=== PATIENT | female | born 1945 | race Caucasian/White ===

== ENCOUNTER 2024-06-13 23:20 | Emergency (ER) | payer MEDICARE, OTHER, SELFPAY ==
[2024-06-13 23:22] VITALS: BP 140/83
[2024-06-14 01:12] LABS: % Basophils 0.7 % (0-2); % Eosinophils 1.6 % (0-6); % Immature Granulocytes 0.4 % (0-0.5); % Lymphocytes 21.3 % (20.5-51.1); % Monocytes 9.4 % (1.7-9.3); % Neutrophils 66.6 % (42.2-75.2); Absolute Basophils 0.1 10^3/uL (0-0.2); Absolute Eosinophils 0.1 10^3/uL (0-0.7); Absolute Lymphocytes 1.6 10^3/uL (1.2-3.4); Absolute Monocytes 0.7 10^3/uL (0.1-0.6); Hematocrit 38.8 % (37.0-47.0); Hemoglobin 13.2 g/dL (12.0-16.0); Mean Corpuscular Hgb 30.9 pg (27.0-31.0); Mean Corpuscular Volume 90.9 fL (81.0-99.0); Mean Platelet Volume 9.7 fL (7.4-10.4); Nucleated Red Blood Cells % 0 %; Platelet Count 193 10^3/uL (130-400); Red Blood Cell Count 4.27 10^6/uL (4.20-5.40); Red Cell Dist. Width 13.7 % (11.5-14.5); White Blood Cell Count 7.5 10^3/uL (4.8-10.8)
[2024-06-14 01:26] LABS: ALT (SGPT) 23 U/L (0-35); AST (SGOT) 26 U/L (14-36); Albumin 4.1 g/dl (3.5-5.0); Alkaline Phosphatase 66 U/L (38-126); Blood Urea Nitrogen 35 mg/dl (7-17); Calcium 9.9 mg/dl (8.4-10.2); Carbon Dioxide 27 mmol/L (22-30); Chloride 105 mmol/L (98-107); Glucose 102 mg/dl (70-99); Potassium 4.4 mmol/L (3.5-5.1); Sodium 138 mmol/L (135-145); Total Bilirubin 0.5 mg/dl (0.2-1.3); Total Protein 6.9 g/dl (6.3-8.2); eGFR > 60.00
[2024-06-14 02:12] VITALS: BP 136/80
--- NOTE | 2024-06-14 02:15 | ED.GENMED ---
History of Present Illness
General
Chief Complaint: Vaginal Bleeding
Source: patient
Exam Limitations: none
Time Seen by Provider: 06/14/24 01:46
History of Present Illness
History of Present Illness:
This is a 79 year old female that comes in with c/o vaginal bleeding. State that this started on . Patient went to and again on Saturday. States that she was given Bactrim as she was told it would help the bleeding to stop.
States that she had 2 doses and it has not helped. States that she as told that she did not have a UTI. States that she has had urinary frequency. Denies any fever, chills, chest pain, SOB, abd pain, nausea, vomiting, diarrhea, headache, dizziness,
urinary burning.
Past History
Past History
ED Past Medical History: Arrthythmia (Atrial fib) and Hypothyroidism; Negative Asthma, HTN or Hypercholesterolemia
ED Past Surgical History: None
Social History
Tobacco: Non-smoker
Alcohol: None
Personal:
Living: with family
Review of Systems
Review of Systems
All Other Systems: ROS reviewed and negative except as documented in HPI and ROS
Constitutional: Reports no symptoms; Denies fever or chills
EENT: Reports no symptoms
Respiratory: Reports no symptoms; Denies cough or trouble breathing
Cardiac: Reports no symptoms; Denies chest pain
ABD/GI: Reports no symptoms; Denies abdominal pain, nausea, vomiting or diarrhea
: Reports frequency; Denies dysuria or urgency
Musculoskeletal: Reports no symptoms
Skin: Reports no symptoms
Neurological: Reports no symptoms; Denies dizzy or headache
Psychiatric: Reports no symptoms
Phy Exam
General Physical Exam
General Presentation: well appearing and no apparent distress
General age: appears stated age
General Skin: warm and dry
General Habitus: elderly
General Mental: alert
General Hydration: dry mucous membranes
ENT Exam
ENT Exam: TM's normal, pharynx normal and neck supple
Eye Exam
Eye Exam: EOMI
Cardiovascular Exam
Cardiovascular Exam: no edema, normal peripheral pulses and irregularly irregular
Pulmonary Exam
Pulmonary Exam: lungs clear, no respiratory distress, no rales, chest non tender, no crackles, no rhonchi, no wheezing and no cough
Gastrointestinal Exam
Gastrointestinal Exam: normal bowel sounds, non tender, soft, no organomegaly, no pulsatile mass and non distended
Genitourinary Exam Female
Exam Female: vaginal bleeding (noted, Moderate amount of bright red bleeding)
Musculoskeletal Exam
Musculoskeletal Exam: full ROM and no edema
Skin Exam
Skin Exam: normal color, warm/dry, no rash and no petechia
Psychiatric Exam
Psychiatric Exam: normal mood/affect
Course
Orders/Labs/Results
Orders:
Orders
06/14/24 01:02
Type+Screen Urgent
CBC/With Diff [Complete Blood Count/With Diff] Urgent
CMP [Comprehensive Metabolic Panel] Urgent
06/14/24 01:57
US Pelvis W Transvag Combined Urgent
Reason For Exam: vaginal bleeding
06/14/24 02:17
Urinalysis Reflex To Culture Urgent
Abnormal Lab Results
06/14/24
01:02
Absolute Monos (auto) 0.7 H 10^3/uL
(0.1-0.6)
Monocytes % 9.4 H %
(1.7-9.3)
BUN 35 H mg/dl
(7-17)
Glucose 102 H mg/dl
(70-99)
06/14/24 01:02
06/14/24 01:02
Dehydration. Glucose nonfasting.
Vital Signs
Initial and Last Documented VS:
Initial Vital Signs
Temp Pulse Resp BP Pulse Ox
98.4 F 90 24 140/83 98
06/13/24 23:22 06/13/24 23:22 06/13/24 23:22 06/13/24 23:22 06/13/24 23:22
Last Documented Vital Signs
Temp Pulse Resp BP Pulse Ox
98.4 F 86 20 136/80 98
06/13/24 23:22 06/14/24 02:12 06/14/24 02:12 06/14/24 02:12 06/14/24 02:12
MDM/Problems Addressed
Differential Diagnosis Includes:
abnormal vaginal bleeding, UTI,
MDM/Problems Addressed:
This is a 79 year old female that comes in with c/o vaginal bleeding since . States that she has been to twice. States that she had 2 doses o Bactrim that she was given. States that it has not helped her to stop bleeding.
Will check labs and get US.
back into see patient. Explained that her blood work shows that her H/H is normal. Patient is dehydrated. Patient to increase her water intake to 8-8oz glasses daily. US shows that she has endometrial thickening. patient will need to follow up with
the [facility] for further evaluation and possible Biopsy. Patient was given Bactrim from . Explained that with bleeding you can't see the WBC's so they may have felt there was also a UTI. Patient will continue with the Bactrim. Patient to return
with dizziness or any other concerns.
Chronic conditions affecting care:
NA
Acute Exacerbation and/or Progression of Chronic Illness:
NA
*Radiology
Radiology exam reviewed: radiology read reviewed (US night hawk- Endometrial thickening of 1.2cdm (measred ednovaginally) without hypervascularity, abnormal in a postmenopausal patient. Advise gynecology follow-up. cervical nabothian cyst. Ovaries
not visualized. No pelvic free fluid. . )
*Pulse Oximetry
Patient hypoxic: no
*EKG
Interpreted by ED Provider?: NA
Rate: EKG- N/A
*Cancer Registry Coordinator Interpretation
Rate: Cancer Registry Coordinator- N/A
*Critical Care Note
Total Time (30-74mins, 75-104mins- exclusive of procedures): Not Applicable
ED Attending Note
-
Portions of this chart may have been created with voice recognition software.� Occasional wrong word or��sound alike� substitutions may have occurred due to the inherent limitations of voice recognition software.
Discharge Plan
Departure
Disposition: Home (Routine Discharge)
Date of Disposition: 06/14/24
Time of Disposition: 02:52
Patient with high blood pressure during this ER visit?: Yes
Condition: Good
Covid-19: Not Applicable
Discharge Problem:
Abnormal vaginal bleeding, Endometrial thickening on ultrasound
Instructions: BLOOD PRESSURE
Additional Instructions:
As discussed, your blood work shows that you were dehydrated. Please increase your water intake to 8-8oz glasses daily. Your Ultrasound shows that you have a thickened endometrium. This will need to be further evaluated by the [facility] and possible a
biopsy. IF YOU HAVE ANY DIZZINESS, OR YOU HAVE ANY OTHER CONCERNS PLEASE RETURN TO THE EMERGENCY ROOM
Interventions
Interventions:
*Risk Screen - Suicide Last Done: 06/13/24 23:22
*Neglect/Abuse Screening Last Done: 06/13/24 23:22
ED-Female Genitourinary Assessment Last Done: 06/14/24 02:11
Discharge Date and Time
Print Language: MONTSERRATIAN
== END 2024-06-14 03:12 | disposition home or self-care (01) ==
LOC: EMR 23:20
PROVIDERS: Student in an Organized Health Care Education/Training Program; EMERGENCY PHYSICIAN Emergency Medicine
DX: N95.0 Postmenopausal bleeding (principal); R35.0 Frequency of micturition; R93.89 Abnormal findings on diagnostic imaging of other specified body structures; N88.8 Other specified noninflammatory disorders of cervix uteri; E86.0 Dehydration; R03.0 Elevated blood-pressure reading, without diagnosis of hypertension; E03.9 Hypothyroidism, unspecified; I48.91 Unspecified atrial fibrillation
CPT/HCPCS: 99284; 76830; 76856; 80053; 85025; 86850; 86900; 86901